=== PATIENT | female | born 2000 | race Two or more races ===

== ENCOUNTER 2020-05-20 19:12 | Emergency (ER) | payer MEDICAID, OTHER ==
[~2020-05-20] VITALS: Ht 162.6 cm; Wt 59.0 kg
[2020-05-21 01:49] VITALS: BP 116/82
== END 2020-05-21 02:00 | disposition home or self-care (01) ==
LOC: ER 19:12 → EDBD 19:12 → ER 05-21 02:00
DX: S16.1XXA Strain of muscle, fascia and tendon at neck level, initial encounter (principal); M25.562 Pain in left knee; M25.522 Pain in left elbow; V89.2XXA Person injured in unspecified motor-vehicle accident, traffic, initial encounter; Y93.89 Activity, other specified; Y92.410 Unspecified street and highway as the place of occurrence of the external cause; Y99.8 Other external cause status
CPT/HCPCS: 70450; 72125; 73070; 81025